=== PATIENT | female | born 1980 | race Asian ===

== ENCOUNTER → 2016-06-03 | Outpatient (CLI) | payer BC | END | disposition home or self-care (01) | LOC: LAB 05:16 | PROVIDERS: ATTEND Obstetrics & Gynecology | DX: O24.419 Gestational diabetes mellitus in pregnancy, unspecified control (principal); Z3A.00 Weeks of gestation of pregnancy not specified | CPT/HCPCS: 82951 ==

== ENCOUNTER 2016-07-18 16:58 | Inpatient (IN) | payer BC ==
[~2016-07-18] VITALS: Ht 157.5 cm; Wt 70.5 kg
[2016-07-18 18:05] VITALS: Ht 157.5 cm; Wt 70.5 kg
[2016-07-18 18:08] VITALS: BP 118/78; PULSE 100
[2016-07-18] MEDS ORDERED: PREN-99 PO (18:13)
[2016-07-18] MEDS ORDERED: BUTORPHANOL 2 MG INJ IV PRN ×2 (18:30)
[2016-07-18] MEDS ORDERED: ACETAMINOPHEN/CODEINE #3 TAB PO PRN (18:30)
[2016-07-18] MEDS ORDERED: IBUPROFEN 600 MG TAB PO PRN (18:30)
[2016-07-18] MEDS ORDERED: OXYTOCIN 30 UNITS/LR 500 ML IV SCH ×3 (18:30→20:00)
[2016-07-18] MEDS ORDERED: MISOPROSTOL 200 MCG TAB PR PRN (18:30)
[2016-07-18] MEDS ORDERED: LIDOCAINE 1% (MPF) 30 ML INJ INJ PRN (18:30)
[2016-07-18] MEDS ORDERED: CARBOPROST 250 MCG INJ IM PRN (18:30)
[2016-07-18] MEDS ORDERED: METHYLERGONOVINE 0.2 MG INJ IM PRN (18:30)
[2016-07-18] MEDS ORDERED: OXYTOCIN 30 UNITS/LR 500 ML IV PRN (18:30)
[2016-07-18] MEDS: LACTATED RINGER'S 1,000 ML IV SCH (18:34)
[2016-07-18 18:46] LABS: BASOPHILS % 0.3 % (0.0-2.0); EOSINOPHILS # 0.3 10^3/ul (0.0-0.5); EOSINOPHILS % 2.7 % (0.0-7.0); HEMATOCRIT 38.9 % (37.0-47.0); HEMOGLOBIN 13.6 g/dl (12.0-16.0); LYMPHOCYTES # 1.9 10^3/ul (0.8-2.9); LYMPHOCYTES % 15.9 % (15.0-51.0); MEAN CORPUSCULAR HEMOGLOBIN 32.8 pg (29.0-33.0); MEAN CORPUSCULAR HGB CONC 35.1 g/dl (32.0-37.0); MEAN CORPUSCULAR VOLUME 93.6 fl (82.0-101.0); MEAN PLATELET VOLUME 8.9 fl (7.4-10.4); MONOCYTE # 1.1 10^3/ul (0.3-0.9); MONOCYTES % 8.9 % (0.0-11.0); NEUTROPHIL # 8.8 10^3/ul (1.6-7.5); NEUTROPHILS % 72.2 % (39.0-77.0); PLATELET COUNT 228 10^3/UL (140-440); RED BLOOD COUNT 4.16 10^6/ul (4.20-5.40); RED CELL DISTRIBUTION WIDTH 14.2 % (11.5-14.5); UNCORRECTED WBC 12.2 10^3/ul (4.8-10.8); WHITE BLOOD COUNT 12.2 10^3/ul (4.8-10.8)
[2016-07-18 18:47] LABS: CONDITION 1
[2016-07-18 18:49] LABS: INR 0.93; PROTIME 12.5 Sec (12.2-14.2)
[2016-07-18 18:50] LABS: PARTIAL THROMBOPLASTIN TIME 27.1 Sec (25.0-35.0)
[2016-07-18] MEDS ORDERED: LACTATED RINGER'S 1,000 ML IV PRN (20:00)
[2016-07-19] MEDS: LACTATED RINGER'S 1,000 ML IV SCH ×3 (00:39→07:54)
[2016-07-19] MEDS ORDERED: FENTAnyl 2MCG/ML-ROPIV 0.2% 100 ML ONE (01:12)
[2016-07-19] MEDS ORDERED: KETOROLAC 30 MG INJ IV PRN (03:00)
[2016-07-19] MEDS ORDERED: HYDROmorphONE 1 MG/ML SYG IV PRN ×2 (03:00)
[2016-07-19] MEDS ORDERED: morphine 4 MG/ML VIAL IV PRN (03:00)
[2016-07-19] MEDS ORDERED: FENTAnyl 2MCG/ML-ROPIV 0.2% 100 ML BAG EPI SCH (03:00)
[2016-07-19] MEDS ORDERED: NALOXONE (0.4 MG/ML) INJ IV PRN (03:00)
[2016-07-19] MEDS ORDERED: morphine 2 MG INJ IV PRN (03:00)
[2016-07-19] MEDS ORDERED: ONDANSETRON 4 MG INJ IV PRN (03:00)
[2016-07-19] MEDS ORDERED: DIPHENHYDRAMINE 50 MG INJ IV PRN (03:00)
[2016-07-19] MEDS ORDERED: AMPICILLIN 2 GM/NS (PMX) 100 ML IVPB ONE (03:00)
[2016-07-19] MEDS: AMPICILLIN 1 GM/NS (PMX) 50 ML IVPB SCH ×2 (06:58→11:09)
[2016-07-19] MEDS ORDERED: ACETAMINOPHEN 325 MG TAB PO ONE (13:00)
[2016-07-19] MEDS: LACTATED RINGER'S 1,000 ML IV* SCH ×2 (15:45→19:46)
--- NOTE | 2016-07-19 15:53 | LDN ---
Date/Time of Note Date/Time of Note DATE: 07/19/16 TIME: 15:51 Delivery Summary of a viable baby boy weighing 3500 grams or 7# 11oz, 20" long, and with Apgars of 9/9. Placenta Delivered: Spontaneously Meconium: none Perineum intact?: Yes Perineal laceration repair: Second degree right lateral laceration repaired with 2-0 chromic. Estimated blood loss: 250 Sponge & Needle done & correct: Yes Any foreign bodies felt in the: No (vagina) Problems: Delivery Information Sex Infant Sex: male Apgars 1 Minute: 9 5 Minute: 9 Suctioning Nose & mouth suctioned at jermain: Yes Delee suction performed: No Umbilical Cord Umbilical cord with: 3 Vessels Cord presentations: no nuchal cord Cord Blood was obtained: Yes Mother & Baby Disposition Disposition Mom & Baby to Maternity; Good: Yes Baby to NICU: No PRABHA RED MD Jul 19, 2016 15:53
--- NOTE | 2016-07-19 15:58 | HP ---
Date/Time of Note Date/Time of Note DATE: 07/19/16 TIME: 15:53 OB - History Hx of Present Free Text/Dictation 36 y.o. A1 with an IUP at 38w 4d came in with ruptured membranes, in mild labor on 07/18 . Last Menstrual Period: October 23, 2015 Estimated Due Date: Jul 29, 2016 : 2 Para: 0 Therapeutic : 1 Care: Good Care Ultrasounds: Normal mid trimester US Obstetrical Complications: None Medical Complications: None Past Family/Social History * Past Medical, Surgical, Family and Obstetric Histories reviewed from chart. Blood Type: A+ Rubella: immune RPR/VDRL: Negative GBS Status: Negative HBsAG: Negative OB Admission Exam Vital Signs Vital Signs Vital Signs Date Time Temp Pulse Resp B/P Pulse Ox O2 Delivery O2 Flow Rate FiO2 07/18/16 18:08 98.2 100 118/78 Room Air Physical Exam HEENT: WNL Heart: Rhythm Normal Lungs: Clear Abdomen: WNL Extremities: Normal Reflexes: Normal Cervical Dilatation: 3cm Effacement: 75% Station: -2 Membranes: Ruptured Amniotic Fluid: Clear Heart Rate: 120's Accelerations: Accelerations Present Decelerations: No Decelerations Varibility: Moderate Contractions on Admission: 6-10 Minutes Apart Intensity: Mild Last 72 hours Lab Results CBC & BMP 07/18/16 17:30 OB Assessment/Plan Reason for admission: rupture of membranes Other Assessment: IUP at 38w 4d. Plan: Other (Augmentation) Induction Method: per Pitocin Protocol PRABHA RED MD Jul 19, 2016 15:58
[2016-07-19] MEDS ORDERED: OXYCODONE/ASPIRIN (4.88/325) TAB PO PRN (16:00)
[2016-07-19] MEDS ORDERED: OXYTOCIN 30 UNITS/LR 500 ML IV PRN (16:00)
[2016-07-19] MEDS ORDERED: LANOLIN 7 GM TUBE TOP PRN (16:00)
[2016-07-19] MEDS ORDERED: METHYLERGONOVINE 0.2 MG INJ IM PRN (16:00)
[2016-07-19] MEDS ORDERED: MISOPROSTOL 200 MCG TAB PR PRN (16:00)
[2016-07-19] MEDS ORDERED: BENZOCAINE 20% 56 ML SPRAY TOP PRN (16:00)
[2016-07-19] MEDS ORDERED: WITCH HAZEL/GLYCERIN PAD PR PRN (16:00)
[2016-07-19] MEDS ORDERED: CARBOPROST 250 MCG INJ IM PRN (16:00)
[2016-07-19 17:30] VITALS: BP 113/72; PULSE 97; RESP 17
[2016-07-19] MEDS: IBUPROFEN 600 MG TAB PO SCH ×2 (18:09→23:40)
[2016-07-19 19:45] VITALS: BP 112/64; PULSE 69; RESP 19
[2016-07-20 04:15] VITALS: BP 102/61; PULSE 82; RESP 19
[2016-07-20] MEDS: IBUPROFEN 600 MG TAB PO SCH ×3 (05:51→17:46)
[2016-07-20 07:54] LABS: HEMATOCRIT 31.2 % (37.0-47.0); HEMOGLOBIN 10.8 g/dl (12.0-16.0); MEAN CORPUSCULAR HEMOGLOBIN 32.6 pg (29.0-33.0); MEAN CORPUSCULAR HGB CONC 34.6 g/dl (32.0-37.0); MEAN CORPUSCULAR VOLUME 94.3 fl (82.0-101.0); MEAN PLATELET VOLUME 8.4 fl (7.4-10.4); PLATELET COUNT 172 10^3/UL (140-440); RED BLOOD COUNT 3.31 10^6/ul (4.20-5.40); RED CELL DISTRIBUTION WIDTH 14.2 % (11.5-14.5)
[2016-07-20 07:58] LABS: CONDITION 1; LH ANALYZER COMMENTS 1; SUSPECT 1
[2016-07-20 08:15] VITALS: BP 91/63; PULSE 88; RESP 16
[2016-07-20 10:28] LABS: EOSINOPHILS # 0.2 10^3/ul (0.0-0.5); LYMPHOCYTES # 1.2 10^3/ul (0.8-2.9); MONOCYTE # 0.9 10^3/ul (0.3-0.9); NEUTROPHIL # 20.2 10^3/ul (1.6-7.5)
--- NOTE | 2016-07-20 12:29 | QN ---
Documentation Comment PPD #1 s/p . Doing well, . Bleeding is minimal. T=98.4, BP 102/61. Fundus is firm. Lochia moderate. Extremities NT with 1-2+ edema. WBC 23K. Hgb 10.8. P: continue care and plan d/c for tomorrow. PRABHA RED MD Jul 20, 2016 12:29
[2016-07-20 12:40] VITALS: BP 101/63; PULSE 93; RESP 16
[2016-07-20 16:20] VITALS: BP 90/68; PULSE 94; RESP 18
[2016-07-20 20:00] VITALS: BP 108/67; PULSE 71; RESP 20
[2016-07-21] MEDS: IBUPROFEN 600 MG TAB PO SCH ×3 (00:25→11:44)
[2016-07-21 04:12] VITALS: BP 91/60; PULSE 76; RESP 18
[2016-07-21 08:00] VITALS: BP 110/75; PULSE 67; RESP 16
[2016-07-21] MEDS ORDERED: DIPHTH/TET/ACEL PERTUSS (ADULT) 0.5 ML VIAL IM* ONE (09:00)
--- NOTE | 2016-07-21 11:27 | PD.PPDC ---
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
--- NOTE | 2016-07-21 11:29 | DS ---
Date/Time of Note Date/Time of Note DATE: 07/21/16 TIME: 11:28 Obstetrical Discharge Record Final Diagnosis Final Diagnosis: Term delivered Vaginal Delivery Obstetrical Delivery: Spontaneous, Laceration, Repaired Complications Augmentation: Yes Induction: No Condition on Discharge Physical Assessment Last Vitals: T=97.7 UR=312/75 Voiding: Yes Bowel Movement: Yes Breast: Filling Fundus: Firm Episiotomy: Lacerations intact. Calf Tenderness: No Patient Condition: Good PRABHA RED MD Jul 21, 2016 11:29
== END 2016-07-21 15:45 | disposition home or self-care (01) | DRG 775 ==
LOC: OBT 16:58 → L-D 16:58 → OBT 17:00 → L-D 17:06 → PP1 07-19 17:31
PROVIDERS: ADMIT Obstetrics & Gynecology; ATTEND Obstetrics & Gynecology
PROC: 10E0XZZ Delivery of Products of Conception, External Approach (ICD-10-PCS; principal; 2016-07-19)
PROC: 0KQM0ZZ Repair Perineum Muscle, Open Approach (ICD-10-PCS; 2016-07-19)
PROC: 3E00X4Z Introduction of Serum, Toxoid and Vaccine into Skin and Mucous Membranes, External Approach (ICD-10-PCS; 2016-07-21)
DX: O70.1 Second degree perineal laceration during delivery (principal); Z37.0 Single live birth; Z23 Encounter for immunization; Z3A.38 38 weeks gestation of pregnancy
CPT/HCPCS: 62319; 85025; 85610; 85730; 86592; 86900; 86901; 90715; 99464; A4310; J0290; J2590; J3010; J7120